=== PATIENT | female | born 1955 | race Caucasian/White ===

== ENCOUNTER → 2018-05-10 14:42 | Outpatient (CLI) | payer MEDICARE, SELFPAY ==
[2018-05-10 17:04] LABS: TSH w/ Reflex to FT4 1.79 uIU/mL (0.47-4.68)
== END ==
PROVIDERS: PCP Family Medicine; Visit Provider Family Medicine
DX: R00.2 Palpitations (principal)
CPT/HCPCS: 36415; 84443

== ENCOUNTER → 2018-05-24 07:12 | Outpatient (CLI) | payer MEDICARE, OTHER, SELFPAY ==
--- NOTE | 2018-06-09 08:13 | PM.CARDMON.1 ---
[employer] Report Referral & Results Date Patient Seen: 05/24/18 Requesting provider: Ross Calderon Indication: Palpitations Duration of monitoring (days): 7 Diary information: There were 5 diary entries associated with sinus rhythm, PACs and PVCs There were 22 patient triggered events associated with sinus rhythm, PACs, PVCs and a very short burst of what appears to be an SVT versus atrial tachycardia Data: Minimum heart rate was 45 beats per minute at 03:03 on 05/27/2018 Maximum sinus heart rate was 130 beats per minute at 11:03 on 05/25/2018 Maximum overall heart rate was 218 beats per minute during a 5 beat run of SVT on May 29, 2018 at 06:42 Approximately 3.9% of identified beats were supraventricular ectopic in origin Less than 1% of identified beats were ventricular ectopic in origin Patient also had multiple runs of SVT or atrial tachycardia (difficult to tell the difference) the longest being 11.6 sec at a rate of 133 beats per minute Impression: Patient with both ventricular and supraventricular ectopic dysrhythmia as above Patient also with a significant burden of very short duration SVT that might well be symptomatic. Fortunately there were no longer runs beyond about 11-12 seconds or so Clinical correlation suggested
== END ==
PROVIDERS: Family Provider Family Medicine; PCP Family Medicine; Visit Provider Family Medicine
DX: R00.2 Palpitations (principal)
CPT/HCPCS: 0296T; 0298T

== ENCOUNTER → 2018-05-24 08:52 | Outpatient (CLI) | payer MEDICARE, OTHER, SELFPAY ==
[2018-05-24 10:01] LABS: Hematocrit 42.1 % (36-46); Hemoglobin 14.3 g/dL (12.0-16.0); Mean Corpuscular HGB Conc 34.1 % (30-36); Mean Corpuscular Hemoglobin 30.7 PG (26-34); Mean Corpuscular Volume 90.2 fL (80-100); Platelet Count 214 X10^3/uL (150-400); Red Blood Cell Count 4.67 X10^6/uL (4.0-5.2); Red Cell Distribution Width 13.5 % (11.6-14.8); White Blood Cell Count 4.5 X10^3/uL (4.5-11.0)
[2018-05-24 10:29] LABS: HEMOLYSIS < 15 (0-50)
[2018-05-24 10:35] LABS: Alanine Aminotransferase 34 IU/L (9-52); Albumin 4.4 g/dL (3.5-5.0); Albumin Globulin Ratio 1.5 (1.0-2.8); Alkaline Phosphatase 36 U/L (38-126); Aspartate Aminotransferase 28 IU/L (14-36); BUN Creatinine Ratio 16.3 (6-22); Bilirubin Total 0.4 mg/dL (0.2-1.3); Blood Urea Nitrogen 13 mg/dL (7-17); Calcium 9.7 mg/dL (8.4-10.2); Carbon Dioxide 31 mmol/L (22-32); Chloride 103 mmol/L (98-107); Estimated Glomerular Filt Rate > 60.0 mL/min (>60); Glucose 103 mg/dL (80-110); Magnesium 2.1 mg/dL (1.6-2.3); Potassium 3.9 mmol/L (3.4-5.1); Sodium 141 mmol/L (137-145); Total Protein 7.4 g/dL (6.3-8.2)
[2018-05-24 13:00] LABS: Vitamin B12 644 pg/mL (239-931)
== END ==
PROVIDERS: PCP Family Medicine; Visit Provider Family Medicine
DX: I48.91 Unspecified atrial fibrillation (principal); I10 Essential (primary) hypertension
CPT/HCPCS: 36415; 80053; 82607; 83735; 85027

== ENCOUNTER → 2018-05-31 12:42 | Outpatient (CLI) | payer MEDICARE, OTHER, SELFPAY ==
--- NOTE | 2018-05-31 12:45 | DI.ECHO.S_ITS ---
[facility] +---------+ : : [address] : : : : [id number] : : : : Phone: [phone] Echocardiogram Report + + :Name: LILO MUELLER Study Date: 05/31/2018 Height: 66 in : :[facility] Exam Location: IS Weight: 132 lb : : Gender: Female BSA: 1.7 m2 : :: 1955 Age: 63 yrs BP: 145/80 mmHg: :Reason For Study: AFIB : : Performed By: Jayy Ryan : :Referring: DEMETRA GRAHAM : + + Interpretation Summary 1) Normal left ventricular thickness, size, wall motion, and systolic function (EF 55-60%). 2) Normal right ventricular size and function. 3) Moderately enlarged left atrium. 4) There appears to be discrete nodular thickening of the right coronary cusp. No valvular stenosis or regurgitation present. 5) No prior Echo available for comparison. If there is clinical concern for endocarditis, consider JEAN PAUL. Procedure: A two-dimensional transthoracic echocardiogram with color flow and Doppler was performed. The study quality was technically good. There is no prior echocardiogram noted for this patient. The patient was in normal sinus rhythm during the exam. Left Ventricle: The left ventricle is normal in size. Left ventricular wall thickness is borderline increased. The ejection fraction is estimated to be 55-60%. Left ventricular systolic function is normal. There are no focal wall motion abnormalities. Right Ventricle: The right ventricle is normal in size and function. Atria: The left atrium is moderately dilated. Right atrial size is normal. The interatrial septum is intact with no evidence for an atrial septal defect. Mitral Valve: The mitral valve is normal in structure and function. There is trace mitral regurgitation. Aortic Valve: The aortic valve is trileaflet. The aortic valve opens well. There is discrete nodular thickening of the right coronary cusp. There is no aortic valve stenosis. No aortic regurgitation is present. Tricuspid Valve: The tricuspid valve is normal in structure and function. There is trace tricuspid regurgitation. The right ventricular systolic pressure is estimated to be at least 25 mmHg based on an estimated right atrial pressure of 3 mm Hg. Pulmonic Valve: The pulmonic valve is normal in structure and function. There is no pulmonic valvular regurgitation. Great Vessels: The aortic root is normal size. The dimensions of the ascending aorta are normal. The pulmonary artery is normal size. The IVC is of normal diameter and collapses greater than 50% with a sniff. This suggests a low right atrial pressure of 3 mm Hg. Pericardium/ Pleura There is no pericardial effusion. There is no pleural effusion. MMode/2D Measurements & Calculations LVIDd: 4.2 cm LVOT diam: 2.0 cm LVIDs: 3.4 cm Ao root diam: 3.4 cm FS: 18.9 % Aortic Jxn: 2.4 cm EPSS: 0.45 cm asc Aorta Diam: 2.9 cm IVSd: 0.86 cm Ao Arch Diam (Prox Trans): 2.7 cm LVPWd: 0.80 cm LV jasso. diameter/BSA (cm/m^2): 2.5 LV sys. diameter/BSA (cm/m^2): 2.0 LA dimension: 4.0 cm RA long axis: 4.8 cm LA A2 area: 21.6 cm2 RA area: 15.8 cm2 LA A4 area: 19.6 cm2 RA vol: 43.8 ml LA length (vol): 5.5 cm RA : 26.1 ml/m2 LA vol: 65.0 ml IVC diam: 1.8 cm LA vol index: 38.8 ml/m2 Doppler Measurements & Calculations Ao V2 max: 138.4 cm/sec LVOT Max Alek: 115.8 cm/sec Ao V2 mean: 109.2 cm/sec LV V1 max P.4 mmHg Ao max P.7 mmHg LV V1 VTI: 28.1 cm Ao mean P.0 mmHg CASSIDY(I,D): 2.4 cm2 Ao V2 VTI: 35.1 cm CASSIDY(V,D): 2.5 cm2 sev ratio: 0.80 CASSIDY indexed to BSA (cm^2/m^2): 1.4 MV E max alek: 99.7 cm/sec TR max alek: 233.2 cm/sec MV A max alek: 105.0 cm/sec TR max P.8 mmHg MV E/A: 0.95 PA V2 max: 96.8 cm/sec Med Peak E' Alek: 6.1 cm/sec PA V2 mean: 71.9 cm/sec E/E' med: 16.4 PA mean P.2 mmHg Lat Peak E' Alek: 9.4 cm/sec PA pr(Accel): 29.1 mmHg E/E' lat: 10.6 PA Accel Time: 0.11 sec E/e' average: 13.5 MV dec time: 0.13 sec SV(LVOT): 85.1 ml Reading Physician:03:15 PM
== END ==
PROVIDERS: Family Provider Family Medicine; PCP Family Medicine; Visit Provider Family Medicine
DX: I48.91 Unspecified atrial fibrillation (principal); I10 Essential (primary) hypertension
CPT/HCPCS: 93306

== ENCOUNTER → 2020-05-23 12:10 | Outpatient (CLI) | payer MEDICARE, OTHER, SELFPAY ==
[2020-05-23] MEDS: COVID-19 VACC #1, MRNA(MOD) 100 MCG/0.5 ML VIAL IM (12:19)
== END ==
PROVIDERS: Family Provider Family Medicine; PCP Family Medicine; Visit Provider Internal Medicine
DX: Z23 Encounter for immunization (principal)
CPT/HCPCS: 0011A; 91301

== ENCOUNTER → 2020-06-01 07:19 | Outpatient (CLI) | payer MEDICARE, OTHER, SELFPAY ==
[2020-06-01 08:39] LABS: Add Manual Diff / Slide Review NO; Basophils Absolute Auto 100 /uL (0-100); Basophils Percent Auto 1.2 % (0-2); Eosinophils Absolute Auto 400 /uL (0-450); Hematocrit 39.6 % (36-46); Hemoglobin 13.4 g/dL (12.0-16.0); Lymphocytes Absolute Auto 1600 /uL (1100-4500); Lymphocytes Percent Auto 31.6 % (25-40); Mean Corpuscular HGB Conc 33.9 % (30-36); Mean Corpuscular Hemoglobin 30.9 PG (26-34); Mean Corpuscular Volume 90.9 fL (80-100); Monocytes Absolute Auto 400 /uL (0-900); Monocytes Percent Auto 8.8 % (3-14); Neutrophils Absolute Auto 2500 /uL (1500-7000); Neutrophils Percent Auto 50.4 % (50-75); Platelet Count 221 X10^3/uL (150-400); Red Blood Cell Count 4.35 X10^6/uL (4.0-5.2); Red Cell Distribution Width 13.3 % (11.6-14.8)
[2020-06-01 08:46] LABS: Alanine Aminotransferase 17 IU/L (<35); Albumin 4.2 g/dL (3.5-5.0); Albumin Globulin Ratio 1.4 (1.0-2.8); Alkaline Phosphatase 40 U/L (38-126); Aspartate Aminotransferase 30 IU/L (14-36); BUN Creatinine Ratio 22.4 (6-22); Bilirubin Total 0.4 mg/dL (0.2-1.3); Blood Urea Nitrogen 17 mg/dL (7-17); Calcium 9.2 mg/dL (8.4-10.2); Carbon Dioxide 28 mmol/L (22-32); Chloride 106 mmol/L (98-107); Cholesterol 175 mg/dL (140-199); Estimated Glomerular Filt Rate > 60.0 mL/min (>60); Globulin 2.9 g/dL (1.7-4.1); Glucose 97 mg/dL (80-110); HDL Cholesterol 59 mg/dL (40-60); HEMOLYSIS < 15 (0-50); LDL Cholesterol Calculated 110 mg/dL (<100); Potassium 4.4 mmol/L (3.4-5.1); Sodium 139 mmol/L (137-145); Total Protein 7.1 g/dL (6.3-8.2); Triglycerides 32 mg/dL (35-150)
[2020-06-01 09:17] LABS: TSH w/ Reflex to FT4 0.85 uIU/mL (0.47-4.68)
== END ==
PROVIDERS: Family Provider Family Medicine; PCP Family Medicine; Referring Provider Family Medicine; Visit Provider Family Medicine
DX: I10 Essential (primary) hypertension (principal); Z13.1 Encounter for screening for diabetes mellitus; Z13.6 Encounter for screening for cardiovascular disorders
CPT/HCPCS: 36415; 80053; 80061; 84443; 85025

== ENCOUNTER → 2020-06-20 07:51 | Outpatient (CLI) | payer MEDICARE, OTHER, SELFPAY ==
[2020-06-20] MEDS: COVID-19 VACC #2, MRNA(MOD) 100 MCG/0.5 ML VIAL IM (07:59)
== END ==
PROVIDERS: Family Provider Family Medicine; PCP Family Medicine; Visit Provider Internal Medicine
DX: Z23 Encounter for immunization (principal)
CPT/HCPCS: 0012A; 91301

== ENCOUNTER → 2021-03-01 11:55 | Outpatient (CLI) | payer MEDICARE, OTHER, SELFPAY ==
[2021-03-01] MEDS: COVID-19 VACC #3, MRNA(MOD) 50 MCG/0.25 ML VIAL IM (12:00)
== END ==
PROVIDERS: PCP Family Medicine; Visit Provider Internal Medicine
DX: Z23 Encounter for immunization (principal)
CPT/HCPCS: 0013A; 91301

== ENCOUNTER → 2023-06-09 09:40 | Outpatient (CLI) | payer MEDICARE, OTHER, SELFPAY | PROVIDERS: Family Provider Family Medicine; PCP Family Medicine; Visit Provider Physician Assistant Surgical | DX: J02.9 Acute pharyngitis, unspecified (principal); N89.8 Other specified noninflammatory disorders of vagina | CPT/HCPCS: 87086; 87210 ==

== ENCOUNTER 2023-06-10 06:38 | Emergency (ER) | payer MEDICARE, OTHER, SELFPAY ==
[2023-06-10 06:50] VITALS: BP 143/63; PULSE 83; RESP 18; TEMP 37.1; O2SAT 99; BMI 24.4
--- NOTE | 2023-06-10 07:08 | ED_ITS ---
HPI - Skin/Abscess/Foreign Bdy General Chief complaint: Skin/Abscess/Foreign Body Stated complaint: swollen face Time Seen by Provider: 06/10/23 06:55 Source: patient Mode of arrival: Ambulatory Limitations: no limitations History of Present Illness HPI narrative: Patient is a 68-year-old female history of hypertension presents today with 2 days of facial erythema and fever. She reports this started 2 days ago with fever yesterday she woke up and felt like her scalp was on fire throughout the day she started to notice more increasing redness. Certain more on the right side of her face and ear and spread over to her forehead. She recalls that 2-3 days ago at work she was wearing an ear piece in that ear. She is currently afebrile. She was seen at walk-in clinic yesterday got started on Keflex. She is taken 3 doses but woke up this morning and felt like it was worse. She has no difficulty breathing or opening her eyes. No other signs or symptoms Related Data Home Medications Medication Instructions Recorded Confirmed Fish Oil (#FISH OIL) 1 iu PO QDAY ##0 09/29/11 06/09/23 aspirin 81 mg tablet,delayed 81 mg PO QDAY ##0 09/29/11 06/09/23 release ascorbate calcium (vitamin C) 500 500 mg PO DAILY 06/06/20 06/09/23 mg tablet cholecalciferol (vitamin D3) 50 50 mcg PO DAILY 06/06/20 06/09/23 mcg (2,000 unit) capsule fexofenadine 180 mg tablet 180 mg PO DAILY 06/06/20 06/09/23 (Allergy Relief (fexofenadine)) loratadine 10 mg tablet (Allergy 10 mg PO DAILY PRN allergy symptoms 06/06/21 06/09/23 Relief (loratadine)) Previous Rx's Medication Instructions Recorded lisinopril 20 mg tablet 10 mg (1/2 x 20 mg) .Route DAILY 10/16/22 #90 tabs cephalexin 500 mg capsule 500 mg PO BID 7 days #14 caps 06/09/23 cephalexin 500 mg capsule 500 mg PO QID 7 days #28 caps 06/10/23 Allergies Allergy/AdvReac Type Severity Reaction Status Date / Time No Known Drug Allergies Allergy Verified 06/09/23 09:35 Patient History Medical History (Updated 06/10/23 @ 07:39 by Le Sen DO) Premature ventricular contractions Vision disorder Seasonal allergies (~1959) Mumps (~1962) Chicken pox (~1958) Fracture (~2014) Hypertension (~2014) Surgical History (System 02/26/21 @ 08:32 by Lady Nithya De La Cruz) Anesthesia Wrist fracture, right (~05/2014) Status post appendectomy (~1984) Status post delivery (~1984) Status post delivery (~1981) Social History (Updated 06/11/21 @ 09:31 by Ross Calderon MD) marital status: Smoking Status: Never smoker alcohol intake: never (1-3 A WEEK ) substance use type: does not use Smoking Status: Never smoker Substance Use Type: marijuana Exam Initial Vital Signs Initial Vital Signs: Vital Signs Temperature 98.8 F 06/10/23 06:50 Pulse Rate 83 06/10/23 06:50 Respiratory Rate 18 06/10/23 06:50 Blood Pressure 143/63 H 06/10/23 06:50 Pulse Oximetry 99 06/10/23 06:50 Oxygen Delivery Method Room Air 06/10/23 06:50 GENERAL: Alert well-appearing 68-year-old female and in no acute distress. HEENT: Head atraumatic,EOMI, pupils reactive, face symmetric, moist mucous membranes EARS: Right external ear significantly erythematous swollen, left external ear within normal limits Tympanic membranes visualized bilaterally, no erythema or bulging, no hemotympanum CARDIOVASCULAR: Regular rate and rhythm without murmurs, rubs or gallops. RESPIRATORY: Breath sounds equal bilaterally, no wheezes rales or rhonchi. EXTREMITIES: Normal range of motion, no clubbing or edema. Neurovascularly intact NEUROLOGICAL: Alert and oriented x4.Normal gait and speech. SKIN: Erythema external ear extending into right cheek and forehead no significant periorbital edema no obvious fluctuation or drainage no vesicles or petechiae Course Orders Ordered: ED Orders 06/10/23 07:21 CBC Auto Diff [Complete Blood Count AUTO DIFF] Stat CMP [Comprehensive Metabolic Panel] Stat Discontinued Medications Ceftriaxone Sodium 1,000 mg/ (Sodium Chloride) 100 mls @ 200 mls/hr IV NOW ONE Stop: 06/10/23 07:10 Last Infusion: 06/10/23 08:07 Dose: Infused Documented By: Admin: 06/10/23 07:30 Dose: 200 mls/hr Documented By: ALOK Vital Signs Vital signs: Vital Signs - 8 hr 06/10/23 06:50 06/10/23 08:12 Temperature 98.8 F 97.6 F Pulse Rate 83 80 Respiratory Rate 18 20 Blood Pressure 143/63 H 115/58 L Pulse Oximetry 99 98 Oxygen Delivery Method Room Air Room Air MDM - Skin/Abscess/Foreign Bdy Lab Data 06/10/23 07:21 06/10/23 07:21 Labs: Lab Results 06/10/23 Range/Units 07:21 WBC 12.6 H (4.5-11.0) X10^3/uL RBC 4.23 (4.0-5.2) X10^6/uL Hgb 12.7 (12.0-16.0) g/dL Hct 37.3 (36-46) % MCV 88.1 (80-100) fL MCH 30.0 (26-34) PG MCHC 34.0 (30-36) % RDW 13.2 (11.6-14.8) % Plt Count 193 (150-400) X10^3/uL Neut % (Auto) 83.2 H (50-75) % Lymph % (Auto) 7.2 L (25-40) % [place] % (Auto) 7.7 (3-14) % Eos % (Auto) 1.8 L (2-4) % Baso % (Auto) 0.1 (0-2) % Neut # (Auto) 55752 H (4359-5088) /uL Lymph # (Auto) 900 L (5948-8910) /uL [place] # (Auto) 1000 H (0-900) /uL Eos # (Auto) 200 (0-450) /uL Baso # (Auto) 0 (0-100) /uL Sodium 137 (137-145) mmol/L Potassium 3.8 (3.4-5.1) mmol/L Chloride 101 (98-107) mmol/L Carbon Dioxide 26 (22-32) mmol/L BUN 12 (7-17) mg/dL Creatinine 0.79 (0.52-1.04) mg/dL Estimated GFR > 60 (>60) mL/min BUN/Creatinine Ratio 15.2 (6-22) Glucose 106 (80-110) mg/dL Calcium 9.3 (8.4-10.2) mg/dL Total Bilirubin 0.8 (0.2-1.3) mg/dL AST 38 H (14-36) IU/L ALT 34 (<35) IU/L Alkaline Phosphatase 48 (38-126) U/L Total Protein 7.6 (6.3-8.2) g/dL Albumin 3.9 (3.5-5.0) g/dL Globulin 3.7 (1.7-4.1) g/dL Albumin/Globulin Ratio 1.1 (1.0-2.8) MDM Narrative Medical decision making narrative: Patient is 68-year-old female presents today with facial erythema and cellulitis. She has had fever and chills for the last 2 days has taken 3 doses of Keflex and feels like it is getting worse. She has no significant periorbital edema or angioedema. She is managing her airway appropriately there is no deep neck soft tissue involvement. Blood work has been reviewed she does have mild leukocytosis of 12.7. Vitals are stable no evidence of severe sepsis She is given 1 dose of Rocephin here in the ED increased Keflex to 4 times daily instead of twice daily. Discharge Plan Departure Patient Disposition: Home Clinical Impression: Cellulitis of face Instructions: DI for Cellulitis -- Child Activity Restrictions/Additional Instructions: *You have been diagnosed with facial cellulitis *What to do: At this time give the antibiotics a couple more days to work. Hopefully you start to see improvement tomorrow in the next day. *Continue to take medications as directed Increase Keflex 500 mg 4 times a day not 2 times a day take for a total of 7 days, you will have extra antibiotics *Follow up with your primary care provider in 2-3 days or call [phone] *Return to ER if you should have increasing redness fevers swelling difficulty breathing inability to open eyes or any new, worsening or concerning symptoms Prescriptions: New cephalexin 500 mg capsule 500 mg PO QID 7 Days Qty: 28 0RF No Action fexofenadine [Allergy Relief (fexofenadine)] 180 mg tablet 180 mg PO DAILY cholecalciferol (vitamin D3) 50 mcg (2,000 unit) capsule 50 mcg PO DAILY ascorbate calcium (vitamin C) 500 mg tablet 500 mg PO DAILY loratadine [Allergy Relief (loratadine)] 10 mg tablet 10 mg PO DAILY PRN (Reason: allergy symptoms) cephalexin 500 mg capsule 500 mg PO BID 7 Days Qty: 14 0RF aspirin 81 MG tablet,delayed release (DR/EC) 81 mg PO QDAY Qty: 0 Fish Oil (#FISH OIL) 1 iu PO QDAY Qty: 0 lisinopril 20 mg tablet 10 mg .ROUTE DAILY Qty: 90 3RF Rx Instructions: Take 1/2 tab daily Referrals: Ross Calderon MD [Primary Care Provider] - Stand Alone Forms: Patient Portal/API
[2023-06-10 07:30] LABS: Add Manual Diff / Slide Review NO; Basophils Absolute Auto 0 /uL (0-100); Basophils Percent Auto 0.1 % (0-2); Eosinophils Absolute Auto 200 /uL (0-450); Eosinophils Percent Auto 1.8 % (2-4); Hematocrit 37.3 % (36-46); Hemoglobin 12.7 g/dL (12.0-16.0); Lymphocytes Absolute Auto 900 /uL (1100-4500); Lymphocytes Percent Auto 7.2 % (25-40); Mean Corpuscular Volume 88.1 fL (80-100); Monocytes Absolute Auto 1000 /uL (0-900); Monocytes Percent Auto 7.7 % (3-14); Neutrophils Absolute Auto 10500 /uL (1500-7000); Neutrophils Percent Auto 83.2 % (50-75); Platelet Count 193 X10^3/uL (150-400); Red Blood Cell Count 4.23 X10^6/uL (4.0-5.2); Red Cell Distribution Width 13.2 % (11.6-14.8); White Blood Cell Count 12.6 X10^3/uL (4.5-11.0)
[2023-06-10] MEDS: cefTRIAXone 1,000 MG in SODIUM CHLORIDE 0.9% 100 ML 200 MG IV (07:30)
[2023-06-10 07:40] LABS: Alanine Aminotransferase 34 IU/L (<35); Albumin 3.9 g/dL (3.5-5.0); Albumin Globulin Ratio 1.1 (1.0-2.8); Alkaline Phosphatase 48 U/L (38-126); Aspartate Aminotransferase 38 IU/L (14-36); BUN Creatinine Ratio 15.2 (6-22); Bilirubin Total 0.8 mg/dL (0.2-1.3); Blood Urea Nitrogen 12 mg/dL (7-17); Calcium 9.3 mg/dL (8.4-10.2); Carbon Dioxide 26 mmol/L (22-32); Chloride 101 mmol/L (98-107); Estimated Glomerular Filt Rate > 60 mL/min (>60); Globulin 3.7 g/dL (1.7-4.1); Glucose 106 mg/dL (80-110); HEMOLYSIS < 15 (0-50); Potassium 3.8 mmol/L (3.4-5.1); Sodium 137 mmol/L (137-145); Total Protein 7.6 g/dL (6.3-8.2)
[2023-06-10 08:12] VITALS: BP 115/58; PULSE 80; RESP 20; TEMP 36.4; O2SAT 98
== END 2023-06-10 08:12 | disposition home or self-care (01) ==
PROVIDERS: Emergency Provider Emergency Medicine; Family Provider Family Medicine; PCP Family Medicine
DX: L03.211 Cellulitis of face (principal)
CPT/HCPCS: 36415; 80053; 85025; 96365; 99284; J0696

== ENCOUNTER → 2023-07-07 10:05 | Outpatient (CLI) | payer MEDICARE, OTHER, SELFPAY ==
[2023-07-07 12:30] LABS: Appearance Urine UA CLEAR; Bilirubin Urine UA NEGATIVE (NEGATIVE); Color Urine UA YELLOW; Glucose Urine UA NEGATIVE (Negative); Ketones Urine UA NEGATIVE (NEGATIVE); Leukocyte Esterase Urine UA NEGATIVE (NEGATIVE); Nitrite Urine UA NEGATIVE (Negative); Occult Blood Urine UA NEGATIVE (Negative); Protein Urine UA NEGATIVE (Negative); Urobilinogen Urine UA 0.2 E.U./dL (0.2); pH Urine UA 5.5 (4.5-8.0)
[2023-07-07 12:32] LABS: Urine Volume 10mL (spun)
[2023-07-07 12:34] LABS: Bacteria Urine None Seen; Culture Indicated Urine Cult Not Indicated; RBC Urine None Seen (0-5/HPF); Squamous Epithelial Cell Urine None Seen (0-5/HPF); WBC Urine None Seen (0-5/HPF)
== END ==
LOC: LAB 10:07
PROVIDERS: Family Provider Family Medicine; PCP Family Medicine; Referring Provider Physician Assistant; Visit Provider Physician Assistant
DX: R31.9 Hematuria, unspecified (principal)
CPT/HCPCS: 81001

== ENCOUNTER → 2024-01-26 07:54 | Outpatient (CLI) | payer MEDICARE, OTHER, SELFPAY ==
--- NOTE | 2024-01-26 09:13 | EKG_ITS ---
[id number] [place] [address] Test Date: 2024-01-26 Pat Name: Helen Larsen Department: [facility] Room: Gender: Female Registered Nurse Midwife: LESLIE : 1955 Requested By: Order Number: [id number] Reading MD: Crescencio Sanderson MD Measurements Intervals [place] Rate: 70 P: 15 HI: 130 QRS: 64 QRSD: 86 T: 71 QT: 406 QTc: 438 Interpretive Statements Normal sinus rhythm Nonspecific ST abnormality Electronically Signed On 01-26-2024 12:05:55 PDT by Crescencio Sanderson MD
[2024-01-26 09:43] LABS: Add Manual Diff / Slide Review NO; Basophils Absolute Auto 100 /uL (0-100); Basophils Percent Auto 1.2 % (0-2); Eosinophils Absolute Auto 300 /uL (0-450); Lymphocytes Absolute Auto 1400 /uL (1100-4500); Lymphocytes Percent Auto 30.8 % (25-40); Mean Corpuscular Hemoglobin 31.2 PG (26-34); Mean Corpuscular Volume 89.3 fL (80-100); Monocytes Absolute Auto 400 /uL (0-900); Monocytes Percent Auto 9.3 % (3-14); Neutrophils Absolute Auto 2500 /uL (1500-7000); Neutrophils Percent Auto 52.7 % (50-75); Platelet Count 230 X10^3/uL (150-400); Red Blood Cell Count 4.48 X10^6/uL (4.0-5.2); Red Cell Distribution Width 13.6 % (11.6-14.8); White Blood Cell Count 4.7 X10^3/uL (4.5-11.0)
== END ==
PROVIDERS: Family Provider Family Medicine; PCP Family Medicine; Referring Provider Family Medicine; Visit Provider Family Medicine
DX: Z01.810 Encounter for preprocedural cardiovascular examination (principal); Z41.9 Encounter for procedure for purposes other than remedying health state, unspecified
CPT/HCPCS: 36415; 85025; 93005; 93010